=== PATIENT | female | born 1980 | race Caucasian/White ===

== ENCOUNTER 2016-12-20 14:16 | Emergency (ER) | payer OTHER ==
[2016-12-20 15:06] LABS: HCG,QUALITATIVE URINE NEGATIVE; SPECIFIC GRAVITY 1.015 (1.001-1.030); URINE APPEARANCE CLEAR; URINE BILIRUBIN NEGATIVE (NEGATIVE); URINE BLOOD NEGATIVE (NEGATIVE); URINE COLOR YELLOW; URINE GLUCOSE (UA) NEGATIVE (NEGATIVE); URINE LEUKOCYTE ESTERASE NEGATIVE (NEGATIVE); URINE NITRITE NEGATIVE (NEGATIVE); URINE PROTEIN NEGATIVE (NEGATIVE); URINE UROBILINOGEN NORMAL (0-1 mg/dl)
== END 2016-12-20 17:09 | disposition home or self-care (01) ==
LOC: ED 14:16
DX: R33.9 Retention of urine, unspecified (principal)

== ENCOUNTER 2016-12-22 17:15 | Emergency (ER) | payer OTHER | END 2016-12-22 19:21 | LOC: SUPCPDRO 17:15 → ED 17:15 | DX: T83.031A Leakage of indwelling urethral catheter, initial encounter (principal); Y84.6 Urinary catheterization as the cause of abnormal reaction of the patient, or of later complication, without mention of misadventure at the time of the procedure; Y92.512 Supermarket, store or market as the place of occurrence of the external cause ==